=== PATIENT | female | born 2000 | race Caucasian/White ===

== ENCOUNTER 2024-03-18 06:30 | Day surgery (SDC) | payer BC ==
[2024-03-18] MEDS: Lactated Ringers 1,000 ML IV SCH (06:57)
[2024-03-18] MEDS ORDERED: Lidocaine 4% 5 ML Amp ONE (07:33)
[2024-03-18] MEDS ORDERED: Midazolam 1 MG/ML 2 ML SDV ONE (07:54)
[2024-03-18] MEDS ORDERED: fentaNYL 100 MCG/2 ML SDV ONE (07:55)
[2024-03-18] MEDS ORDERED: Propofol 200 MG/20 ML SDV ONE ×2 (07:55→08:18)
[2024-03-18 09:33] VITALS: BP 105/54; PULSE 65
[2024-04-14] MEDS ORDERED: Lactated Ringers 1,000 ML IV SCH (07:00)
== END 2024-03-18 10:01 | disposition home or self-care (01) ==
LOC: VM.SDS 06:30
PROVIDERS: ATTEND Student in an Organized Health Care Education/Training Program
DX: Z12.11 Encounter for screening for malignant neoplasm of colon (principal); K29.50 Unspecified chronic gastritis without bleeding; Z83.79 Family history of other diseases of the digestive system
CPT/HCPCS: 00813; J2250; J2704; J3010; J3490; J7120